=== PATIENT | female | born 1985 | race Two or more races ===

== ENCOUNTER 2016-09-25 14:20 | Emergency (ER) | payer BC ==
--- NOTE | 2016-09-25 14:26 | PDOC ---
History of Present Illness - History of Present Illness Initial Comments: 09/25/16 14:46 The patient is a 31 year old female with no significant past medical hx who presents to the ED for evaluation of pain to her left big toe since yesterday morning. The patient reports she stubbed her left big toe on the leg of her dining room table. She reports she has had pain since. The patient denies any radiation of pain, numbness, or tingling to her left lower extremity. She has no further complaints at this time. Surgical: None PCP: Dr. Pleitez <Kisha Donato - Last Filed: 09/25/16 16:10> - General History Source: Patient Exam Limitations: No Limitations <Jennifer Kaiser - Last Filed: 09/25/16 16:13> - General Chief Complaint: Injury Stated Complaint: LEFT 5 TH TOE INJURY Time Seen by Provider: 09/25/16 14:22 Past History <Kisha Donato - Last Filed: 09/25/16 16:10> - Surgical History Appendectomy: Yes - Reproductive History (#): 4 Para: 1 - Psycho/Social/Smoking Cessation Hx Anxiety: No Suicidal Ideation: No Smoking History: Never smoked Hx Alcohol Use: No Drug/Substance Use Hx: No <Jennifer Kaiser - Last Filed: 09/25/16 16:13> - Past Medical History Allergies/Adverse Reactions: Allergies Allergy/AdvReac Type Severity Reaction Status Date / Time No Known Allergies Allergy Verified 10/08/15 18:52 Home Medications: Ambulatory Orders NK [No Known Home Medication] 09/25/16 Review of Systems - Review of Systems Able to Perform ROS?: Yes Comments:: 09/25/16 14:47 MUSCULOSKELETAL: +Left big toe pain. SKIN: +Bruising to left big toe. NEUROLOGIC: No: paresthesias <Kisha Donato - Last Filed: 09/25/16 16:10> *Physical Exam - Physical Exam Comments: 09/25/16 14:50 GENERAL: The patient is in no acute distress. MUSCULOSKELETAL: + Left big toe bruising, swelling, and tenderness <Kisha Donato - Last Filed: 09/25/16 16:10> ED Treatment Course - RADIOLOGY Radiograph Interpretation: 09/25/16 16:10 XRAY left foot Impression: No acute pathology. Reported by Jagdish Moore MD 09/25/1608 <Kisha Donato - Last Filed: 09/25/16 16:10> Medical Decision Making - Medical Decision Making 09/25/16 14:24 A portion of this note was documented by scribe services under my direction. I have reviewed the details of the note, within reason, and agree with the documentation with the following case summary and management plan written by me. Nursing documentation reviewed and incorporated into medical decision making 09/25/16 16:11 This is an otherwise healthy 31-year-old female who presents to the emergency department with a complaint of left little toe pain. Patient states she was chasing her 8-year-old daughter, accidentally stubbed her toe on a table. Patient states she was seen at an outside ER but left because the wait time was too long. Patient presents today for evaluation. Patient has not taken Motrin or Tylenol because she's lactating. Patient will prefer to avoid pain medication. Urine hCG negative. X-ray negative for fracture. Will place in a hard toe shoe. Will ask patient to avoid additional trauma to the area. Follow-up with primary care physician. Return to the ER for any other concerns or complaints <Jennifer Kaiser - Last Filed: 09/25/16 16:13> *DC/Admit/Observation/Transfer - Attestations Scribe Attestion: 09/25/16 14:45 Documentation prepared by Kisha Donato, acting as registered medical assistant for Jennifer Kaiser MD/DO. <Kisha Donato - Last Filed: 09/25/16 16:10> - Discharge Dispostion Admit: No <Jennifer Kaiser - Last Filed: 09/25/16 16:13> Diagnosis at time of Disposition: Injury of toe Qualifiers: Encounter type: initial encounter Laterality: left Qualified Code(s): S99.922A - Unspecified injury of left foot, initial encounter - Discharge Dispostion Disposition: HOME Condition at time of disposition: Stable - Referrals Referrals: Leander Pleitez MD [Primary Care Provider] - - Patient Instructions Printed Discharge Instructions: DI for Toe Sprain Additional Instructions: Return to the emergency department immediately with ANY new, persistent or worsening symptoms. Continue any medications as previously prescribed by your physician. You should follow up with your primary doctor as soon as possible regarding today's emergency department visit. . Please make sure your doctor reviews the results of your emergency evaluation. Thank you for coming to the [facility] today for your care. It was a pleasure to see you today. Please note that your evaluation is INCOMPLETE until you follow-up with your doctor. - Post Discharge Activity Work/School Note: Back to Work
[2016-09-25 14:46] VITALS: BP 108/62; PULSE 52; TEMP 98.7; BMI 25.8
== END 2016-09-25 16:30 | disposition home or self-care (01) ==
LOC: FER 14:20
DX: S99.922A Unspecified injury of left foot, initial encounter (principal); W22.03XA Walked into furniture, initial encounter; Y93.89 Activity, other specified; Y92.008 Other place in unspecified non-institutional (private) residence as the place of occurrence of the external cause
CPT/HCPCS: 73630-TC-LT; 84703; 99281-25

== ENCOUNTER 2025-02-16 11:29 | Emergency (ER) | payer OTHER ==
[2025-02-16 11:41] VITALS: BP 120/81; PULSE 58; RESP 18; TEMP 97.7; BMI 25.8
[2025-02-16] MEDS: IBUPROFEN 400 MG TABLET (FP) PO ONE (11:57)
[2025-02-16] MEDS ORDERED: IBUPROFEN 400 MG TABLET (FP) PO ONE (11:57)
[2025-02-16 13:27] LABS: ABSOLUTE IMMATURE GRANULOCYTES 0.01 x10^3/uL (0.0-0.031); BASOPHILS # 0.04 x10^3/uL (0.01-0.08); EOSINOPHIL % 0.9 % (0.7-5.8); EOSINOPHILS # 0.09 x10^3/uL (0.04-0.36); MCHC 32.2 g/dl (32.2-35.5); MEAN CELL VOLUME 92.3 fl (79.4-94.8); MEAN PLT VOLUME 11.9 fl (9.4-12.3); MONOCYTE # 0.72 x10^3/uL (0.24-0.86); MONOCYTE % 6.9 % (4.7-12.5); RDW 13.5 % (12.2-17.1)
[2025-02-16 13:37] LABS: EPITHELIAL CELLS 0-5 /hpf
[2025-02-16 13:38] LABS: ALK PHOS 28.0 U/L (45-117); CO2 29.0 mmol/L (21-32); CREATININE 0.8 mg/dl (0.6-1.3); GLUCOSE,RANDOM 112.0 mg/dl (74-106); SGOT/AST 15.0 U/L (15-37); SGPT/ALT 15.0 U/L (7-52); TOT PROT 7.4 g/dl (6.4-8.2)
== END 2025-02-16 16:05 | disposition home or self-care (01) ==
LOC: FER 11:29
DX: R10.31 Right lower quadrant pain (principal); R10.32 Left lower quadrant pain
CPT/HCPCS: 36415; 76830-TC; 80053; 81003; 81015; 84703; 85025; 87077; 87086